=== PATIENT | female | born 1980 | race Caucasian/White ===

== ENCOUNTER 2024-04-28 04:14 | Emergency (ER) | payer SELFPAY ==
[2024-04-28 04:28] VITALS: BP 133/80
[2024-04-28 05:40] VITALS: BMI 23.7
--- NOTE | 2024-04-28 07:27 | ED.GENMED ---
History of Present Illness
General
Chief Complaint: Skin Surface Trauma
Source: patient
Exam Limitations: none
Time Seen by Provider: 04/28/24 07:07
Nursing documentation reviewed up to this point in time: agreed with
History of Present Illness
History of Present Illness:
Patient is a 43-year-old female who complains of laceration to right index finger which occurred last night from a broken wine glass. This occurred around 4 AM. She is right-hand dominant. Her tetanus is up-to-date, 2 years ago. She denies any
other injuries. She presented to the ER because laceration was bleeding
Review of Systems
Review of Systems
Allergies reviewed?: Yes
All Other Systems: ROS reviewed and negative except as documented in HPI and ROS
Constitutional: Reports no symptoms; Denies fever
Skin: Reports other (Laceration to right index finger)
Psychiatric: Reports no symptoms
Phy Exam
General Physical Exam
General Presentation: no apparent distress
General age: appears stated age
General Skin: warm and dry
General Habitus: normal
General Mental: alert
General Hydration: appears well hydrated
Neurological Exam
Neurological Exam: alert and oriented x3
Musculoskeletal Exam
Musculoskeletal Exam: other (Right index finger dorsal PIP joint with 1 cm superficial/partial-thickness laceration no active bleeding full flexion extension no bony tenderness no tendon deficit normal sensation, normal cap refill no redness or
swelling.)
Skin Exam
Skin Exam: normal color and warm/dry
Psychiatric Exam
Psychiatric Exam: normal mood/affect
Course
Vital Signs
Initial and Last Documented VS:
Initial Vital Signs
Temp Pulse Resp BP Pulse Ox
98.2 F 93 18 133/80 99
04/28/24 04:28 04/28/24 04:28 04/28/24 04:28 04/28/24 04:28 04/28/24 04:28
Last Documented Vital Signs
Temp Pulse Resp BP Pulse Ox
98.2 F 87 20 133/80 99
04/28/24 04:28 04/28/24 05:30 04/28/24 05:30 04/28/24 04:28 04/28/24 05:30
Procedures
Laceration Closure
Right Volar Second Finger:
Status of Wound: clean
Size of Wound in cm: 1
Description of Wound Edges: sharp
Preparation: cleaned with saline
Wound exploration: no tendon involvement
Type of Closure: other (Steri-Strip)
MDM/Problems Addressed
Differential Diagnosis Includes:
Not limited to laceration
MDM/Problems Addressed:
Simple mostly superficial laceration slightly partial-thickness to dorsal aspect of right next finger wound does not need suturing Steri-Strips applied to support wound along with finger splint. Wound care reviewed. Tetanus utd.
*Critical Care Note
Total Time (30-74mins, 75-104mins- exclusive of procedures): Not Applicable
ED Attending Note
-
Portions of this chart may have been created with voice recognition software.� Occasional wrong word or��sound alike� substitutions may have occurred due to the inherent limitations of voice recognition software.
Discharge Plan
Departure
Patient Disposition: Home (Routine Discharge)
Date of Disposition: 04/28/24
Time of Disposition: 07:28
Patient with high blood pressure during this ER visit?: Yes
Condition: Fair
Covid-19: Not Applicable
Discharge Problem:
Laceration
Instructions: BLOOD PRESSURE, Laceration
Referrals:
NONE,* [Family Provider] -
Activity Restrictions/Additional Instructions:
Keep wound clean and dry for 24 hours after 24 hours may lightly wet wound. Trim Steri-Strips as needed they will fall off on their own 24-48 hours for support. Return if any signs of infection increased pain swelling redness drainage fever
chills. Follow-up with your family doctor next several days as needed for wound check.
Interventions
Interventions:
*Risk Screen - Suicide Last Done: 04/28/24 05:40
*General Assessment Last Done: 04/28/24 05:40
*Neglect/Abuse Screening Last Done: 04/28/24 05:40
ED-Skin Assessment Last Done: 04/28/24 07:03
Discharge Date and Time
Print Language: ROMANSH
[2024-04-28 07:34] VITALS: BP 130/80
== END 2024-04-28 07:34 | disposition home or self-care (01) ==
LOC: EMR 04:14
PROVIDERS: EMERGENCY PHYSICIAN Student in an Organized Health Care Education/Training Program
DX: S61.210A Laceration without foreign body of right index finger without damage to nail, initial encounter (principal); W25.XXXA Contact with sharp glass, initial encounter; R03.0 Elevated blood-pressure reading, without diagnosis of hypertension
CPT/HCPCS: 99283; 29130